=== PATIENT | male | born 1950 | race Caucasian/White ===

== ENCOUNTER 2018-01-31 12:21 | Day surgery (SDC) | payer OTHER ==
[2018-01-31] MEDS ORDERED: PROPOFOL 40 ML (15:39)
== END 2018-01-31 16:42 | disposition home or self-care (01) ==
LOC: GIL 12:21
DX: Z12.11 Encounter for screening for malignant neoplasm of colon (principal); K62.1 Rectal polyp
CPT/HCPCS: 45380; 88305